=== PATIENT | male | born 1975 | race Caucasian/White ===

== ENCOUNTER 2017-08-28 13:07 | Inpatient (IN) | payer OTHER ==
--- NOTE | 2017-08-28 13:12 | HP ---
[facility] Rehab Assess/Revision - Admission History Ad[facility] - Vital signs Vital Signs: NOTED; STABLE. - Findings Detox History & Physical reviewed: Yes Concur with findings: Yes Comments/Additional Findings: PATIENT'S MEDICAL / MEDICATION HISTORY REVIEWED PRIOR TO DISCHARGE FROM DETOX. PATIENT WAS DISCHARGED FROM DETOX UNIT TO BE TAKEN OVER TO REHAB UNIT IN STABLE MEDICAL CONDITION. Inpatient Rehab Admission - Initial Determination Are CD services needed?: Yes Free of communicable disease: Yes Not in need of hospitalization: Yes - Rehab Admission Criteria Previous failed treatment: Yes Comorbidities: Yes Patient is meeting Inpatient Rehab admission criteria:: Yes
[2017-08-28] MEDS ORDERED: LOPERAMIDE HCL 2 MG CAPSULE PO PRN (13:16)
[2017-08-28] MEDS ORDERED: ACETAMINOPHEN 325 MG TABLET (FP) PO PRN (13:16)
[2017-08-28] MEDS ORDERED: P-EPHED 60MG/TRIPROLIDI 2.5MG TABLET PO PRN (13:16)
[2017-08-28] MEDS ORDERED: MAGNESIUM HYDROX 2400MG/30ML ORAL SUSPENSION 30 ML CUP PO PRN (13:16)
[2017-08-28] MEDS ORDERED: MENTHOL/PHENOL 1 EACH UD MM PRN (13:16)
[2017-08-28] MEDS ORDERED: IBUPROFEN 400 MG TABLET (FP) PO PRN (13:16)
[2017-08-28] MEDS ORDERED: MAGNESIUM CITRATE 300 ML BOTTLE PO PRN (13:16)
[2017-08-28] MEDS ORDERED: guaiFENesin/D-METHORPHAN HB 10 ML UNIT-DOSE CUPS PO PRN (13:16)
--- NOTE | 2017-08-28 13:16 | HP ---
Psychiatrist Admission - Data Date of interview: 08/28/17 Admission source: 3N Identifying data: This is the first 5N inpatient rehabilitation admission for thsi 42 year old single male unemployed and supported on PA, [place]. Medical History: Asthma, migraines,smokes cigarettes 10 a day Psychiatric History: Patient reports was diagnosed as bipolar d/o and anxiety, onset of mental illness 2 years ago after he lost his mothe, reports 4-5 psychiatric hospitalizationsvmost recently was hospitalizaed at [facility] last month to address depressed mood. States he is recieving aftercare at [facility], sees and currently on Seroquel 200 mg po hs, Cogentin 1 mg daily, Abilify 15 mg po daily, Zoloft 100 mg po daily, seen by , medications continued. Reports he was aso on Vistarl PRN for anxiety. Physical/Sexual Abuse/Trauma History: Denies history of abuse. Additional Comment: Reports traumatized by his mother's from DM complications, also lost his 2 other brothers. Allergies/Adverse Reactions: Allergies Allergy/AdvReac Type Severity Reaction Status Date / Time No Known Allergies Allergy Verified 08/25/17 12:17 Date of last physical exam: 08/25/17 Concur with the findings of this exam: Yes - Substance Abuse/Tx History Hx Alcohol Use: Yes (1-2 pints of liwendieor,) Hx Substance Use: Yes Substance Use Type: Cocaine (3 times a week), Marijuana Hx Substance Use Treatment: Yes ([facility] x , [facility] ) Mental Status Exam - Mental Status Exam Alert and Oriented to: Time, Place, Person Cognitive Function: Grossly Intact Patient Appearance: Well Groomed Mood: Sad, Anxious Affect: Appropriate, Mood Congruent Patient Behavior: Appropriate, Cooperative Speech Pattern: Clear Voice Loudness: Normal Thought Process: Goal Oriented Thought Disorder: Not Present Hallucinations: Denies Suicidal Ideation: Denies Homicidal Ideation: Denies Insight/Judgement: Fair Appetite: Fair Muscle strength/Tone: Normal Gait/Station: Normal Psychiatric Findings - Problem List ([place] 1, 2,3) (1) Alcohol dependence Current Visit: Yes Status: Acute (2) Cocaine dependence Current Visit: No Status: Acute (3) Marihuana dependence Current Visit: No Status: Acute (4) Nicotine dependence Current Visit: No Status: Acute (5) Bipolar disorder Current Visit: No Status: Chronic Comment: Self-report.On medications. - Initial Treatment Plan Initial Treatment Plan: will continue his current medications, monitor progress as nejet.
[2017-08-28 15:44] VITALS: BMI 34.9
[2017-08-28] MEDS: NICOTINE POLACRILEX 2 MG GUM BUC PRN (20:15)
[2017-08-28] MEDS: ALBUTEROL SO4 18 GM HFA INHALER IH PRN (20:15)
[2017-08-28] MEDS: QUEtiapine FUMARATE 200 MG TABLET PO SCH (21:32)
[2017-08-28] MEDS: THIAMINE HCL 100 MG TABLET (FP) PO SCH (21:32)
[2017-08-29] MEDS: BENZTROPINE MESYLATE 1 MG TABLET (FP) PO SCH (10:05)
[2017-08-29] MEDS: SERTRALINE HCL 50 MG TABLET (FP) PO SCH (10:05)
[2017-08-29] MEDS: PRENATAL VITAMINS W/ FOLIC ACID TABLET (FP) PO SCH (10:05)
[2017-08-29] MEDS: ARIPiprazole 15 MG TABLET PO SCH (10:05)
[2017-08-29] MEDS: NICOTINE 14 MG/24 HOURS TOPICAL PATCH TD SCH (10:05)
[2017-08-29] MEDS: NICOTINE POLACRILEX 2 MG GUM BUC PRN ×4 (10:06→20:11)
[2017-08-29] MEDS: hydrOXYzine PAMOATE 25 MG CAPSULE (FP) PO PRN (15:14)
[2017-08-29] MEDS: MAG HYDROX/AL HYDROX/SIMETH 30 ML UNIT-DOSE CUP PO PRN (20:11)
[2017-08-29] MEDS: THIAMINE HCL 100 MG TABLET (FP) PO SCH (21:25)
[2017-08-29] MEDS: QUEtiapine FUMARATE 200 MG TABLET PO SCH (21:25)
[2017-08-30] MEDS: NICOTINE POLACRILEX 2 MG GUM BUC PRN ×3 (07:31→13:52)
[2017-08-30] MEDS: ARIPiprazole 15 MG TABLET PO SCH (10:07)
[2017-08-30] MEDS: PRENATAL VITAMINS W/ FOLIC ACID TABLET (FP) PO SCH (10:07)
[2017-08-30] MEDS: SERTRALINE HCL 50 MG TABLET (FP) PO SCH (10:07)
[2017-08-30] MEDS: NICOTINE 14 MG/24 HOURS TOPICAL PATCH TD SCH (10:08)
[2017-08-30] MEDS: BENZTROPINE MESYLATE 1 MG TABLET (FP) PO SCH (10:08)
[2017-08-30] MEDS: ALBUTEROL SO4 18 GM HFA INHALER IH PRN (10:09)
[2017-08-30] MEDS: hydrOXYzine PAMOATE 25 MG CAPSULE (FP) PO PRN (11:29)
--- NOTE | 2017-08-30 12:25 | PN ---
[facility] Progress Note Note: tinea pedis left 5th toe treated with tinactin cream bid
--- NOTE | 2017-08-30 14:36 | PN ---
[facility] Progress Note Note: patient requested to increase Seroquel 300 mg po hs as per medical record ( reconciliation list) hector chaudhry was on 300 mg, will increase med. continue to monitor progress.
[2017-08-30] MEDS: TOLNAFTATE 1% CREAM 15 GM TUBE TP SCH ×2 (14:57→21:48)
[2017-08-30] MEDS: NICOTINE POLACRILEX 4 MG GUM BUC PRN ×2 (17:28→20:25)
[2017-08-30] MEDS: QUEtiapine FUMARATE 300 MG TABLET PO SCH (21:47)
[2017-08-30] MEDS: THIAMINE HCL 100 MG TABLET (FP) PO SCH (21:47)
[2017-08-31] MEDS: NICOTINE POLACRILEX 4 MG GUM BUC PRN ×7 (07:04→22:12)
[2017-08-31] MEDS: hydrOXYzine PAMOATE 25 MG CAPSULE (FP) PO PRN (10:29)
[2017-08-31] MEDS: BENZTROPINE MESYLATE 1 MG TABLET (FP) PO SCH (10:30)
[2017-08-31] MEDS: NICOTINE 14 MG/24 HOURS TOPICAL PATCH TD SCH (10:30)
[2017-08-31] MEDS: SERTRALINE HCL 50 MG TABLET (FP) PO SCH (10:30)
[2017-08-31] MEDS: ARIPiprazole 15 MG TABLET PO SCH (10:30)
[2017-08-31] MEDS: PRENATAL VITAMINS W/ FOLIC ACID TABLET (FP) PO SCH (10:30)
[2017-08-31] MEDS: TOLNAFTATE 1% CREAM 15 GM TUBE TP SCH ×2 (10:31→21:29)
[2017-08-31] MEDS: THIAMINE HCL 100 MG TABLET (FP) PO SCH (21:29)
[2017-08-31] MEDS: QUEtiapine FUMARATE 300 MG TABLET PO SCH (21:29)
[2017-09-01] MEDS: NICOTINE POLACRILEX 4 MG GUM BUC PRN ×6 (06:58→22:12)
[2017-09-01] MEDS: TOLNAFTATE 1% CREAM 15 GM TUBE TP SCH ×2 (10:35→21:39)
[2017-09-01] MEDS: NICOTINE 14 MG/24 HOURS TOPICAL PATCH TD SCH (10:36)
[2017-09-01] MEDS: PRENATAL VITAMINS W/ FOLIC ACID TABLET (FP) PO SCH (10:36)
[2017-09-01] MEDS: ARIPiprazole 15 MG TABLET PO SCH (10:36)
[2017-09-01] MEDS: hydrOXYzine PAMOATE 25 MG CAPSULE (FP) PO PRN ×2 (10:36→14:44)
[2017-09-01] MEDS: BENZTROPINE MESYLATE 1 MG TABLET (FP) PO SCH (10:36)
[2017-09-01] MEDS: SERTRALINE HCL 50 MG TABLET (FP) PO SCH (10:36)
[2017-09-01] MEDS: THIAMINE HCL 100 MG TABLET (FP) PO SCH (21:39)
[2017-09-01] MEDS: QUEtiapine FUMARATE 300 MG TABLET PO SCH (21:39)
[2017-09-02] MEDS: NICOTINE POLACRILEX 4 MG GUM BUC PRN ×6 (06:51→20:13)
[2017-09-02] MEDS: NICOTINE 14 MG/24 HOURS TOPICAL PATCH TD SCH (10:19)
[2017-09-02] MEDS: SERTRALINE HCL 50 MG TABLET (FP) PO SCH (10:19)
[2017-09-02] MEDS: TOLNAFTATE 1% CREAM 15 GM TUBE TP SCH ×2 (10:19→21:50)
[2017-09-02] MEDS: PRENATAL VITAMINS W/ FOLIC ACID TABLET (FP) PO SCH (10:19)
[2017-09-02] MEDS: BENZTROPINE MESYLATE 1 MG TABLET (FP) PO SCH (10:19)
[2017-09-02] MEDS: ARIPiprazole 15 MG TABLET PO SCH (10:19)
[2017-09-02] MEDS: hydrOXYzine PAMOATE 25 MG CAPSULE (FP) PO PRN (10:20)
--- NOTE | 2017-09-02 14:15 | PN ---
Psychiatric Progress Note Vital Signs: Vital Signs Period Temp Pulse Resp BP Sys/Vang Pulse Ox Last 24 Hr 98.2 F 99 18-18 113/74 Date of Session: 09/02/17 Chief Complaint:: "anxiety, agitated" HPI: Patient is addressing alcohol, cocaine, cannabis, nicotine dependence comorbid Bipolar disorder. Current Medications: Active Medications Generic Name Dose Route Start Last Admin Trade Name Freq PRN Reason Stop Dose Admin Acetaminophen 650 mg 08/28/17 13:16 Tylenol - PO Q4H PRN FEVER OR PAIN Al Hydroxide/Mg Hydroxide 30 ml 08/28/17 13:16 08/29/17 20:11 Mylanta Oral Suspension - PO 30 ml Q6H PRN Administration DYSPEPSIA Albuterol Sulfate 2 puff 08/28/17 13:18 08/30/17 10:09 Ventolin Hfa Inhaler - IH 2 puff Q4H PRN Administration SHORT OF BREATH/WHEEZING Aripiprazole 15 mg 08/29/17 10:00 09/02/17 10:19 Abilify PO 15 mg DAILY ARTHUR Administration Benztropine Mesylate 1 mg 08/29/17 10:00 09/02/17 10:19 Cogentin - PO 1 mg DAILY ARTHUR Administration Eucalyptus/Menthol/Phenol/Sorbitol 1 each 08/28/17 13:16 Cepastat Lozenge - MM Q4H PRN SORE THROAT Guaifenesin 10 ml 08/28/17 13:16 Robitussin Dm - PO Q6H PRN COUGH Ibuprofen 400 mg 08/28/17 13:16 Motrin - PO Q6H PRN PAIN Loperamide HCl 4 mg 08/28/17 13:16 Imodium - PO Q6H PRN DIARRHEA Magnesium Citrate 300 ml 08/28/17 13:16 Citroma - PO Q48H PRN CONSTIPATION Magnesium Hydroxide 30 ml 08/28/17 13:16 Milk Of Magnesia - PO DAILY PRN CONSTIPATION Nicotine 14 mg 08/29/17 10:00 09/02/17 10:19 Nicoderm Patch - TD Not Given DAILY ARTHUR Nicotine Polacrilex 4 mg 08/30/17 15:05 09/02/17 12:26 Nicorette Gum - BUC 4 mg Q2H PRN Administration NICOTINE REPLACEMENT RX Multivit/Folic Acid/Iron 1 tab 08/29/17 10:00 09/02/17 10:19 Vitamins (Sjr) - PO 1 tab DAILY ARTHUR Administration Pseudoephedrine/Triprolidine 1 combo 08/28/17 13:16 Actifed - PO TID PRN NASAL CONGESTION Sertraline HCl 100 mg 08/29/17 10:00 09/02/17 10:19 Zoloft - PO 100 mg DAILY ARTHUR Administration Thiamine HCl 100 mg 08/28/17 22:00 09/01/17 21:39 Vitamin B1 - PO 100 mg HS ARTHUR Administration Tolnaftate 1 applic 08/30/17 14:00 09/02/17 10:19 Tinactin 1% Cream - TP 1 applic BID ARTHUR Administration Medication(s) Change(s): increase Vistaril 50 mg po 4hrs, increase Seroquel 400 mg po hs. Current Side Effect: No Lab tests ordered: No Lab tests reviewed: Yes Provider note:: Patient reports has been feeling very anxious and easilly aggravavted for "no reason", states in the past was on Seroquel 500 mg po hs and Vistaril 50 mg q4h, reviewed medications with the patient discussed indications and properteis of current medications, will adjust dosage, continue to monitor progress. Total face to face time:: 15 Mental Status Exam - Mental Status Exam Alert and Oriented to: Time, Place, Person Cognitive Function: Grossly Intact Patient Appearance: Unkempt Mood: Anxious, Irritable Affect: Mood Congruent Patient Behavior: Cooperative Speech Pattern: Clear, Appropriate Voice Loudness: Normal Thought Process: Intact, Goal Oriented Thought Disorder: Not Present Hallucinations: Denies Suicidal Ideation: Denies Homicidal Ideation: Denies Insight/Judgement: Fair Sleep: Fair Muscle strength/Tone: Normal Gait/Station: Normal Psychiatric Treatment Plan - Problem List (1) Alcohol dependence Current Visit: Yes (2) Cocaine dependence Current Visit: No (3) Marihuana dependence Current Visit: No (4) Nicotine dependence Current Visit: No Qualifiers: Nicotine product type: cigarettes Substance use status: uncomplicated Qualified Code(s): F17.210 - Nicotine dependence, cigarettes, uncomplicated (5) Bipolar disorder Current Visit: No Qualifiers: Active/Remission status: remission status unspecified Qualified Code(s): F31.9 - Bipolar disorder, unspecified Comment: Self-report.On medications.
[2017-09-02] MEDS: QUEtiapine FUMARATE 400 MG TABLET PO SCH (21:50)
[2017-09-02] MEDS: THIAMINE HCL 100 MG TABLET (FP) PO SCH (21:50)
[2017-09-03] MEDS: NICOTINE POLACRILEX 4 MG GUM BUC PRN ×6 (06:52→22:14)
[2017-09-03] MEDS: NICOTINE 14 MG/24 HOURS TOPICAL PATCH TD SCH (10:11)
[2017-09-03] MEDS: PRENATAL VITAMINS W/ FOLIC ACID TABLET (FP) PO SCH (10:11)
[2017-09-03] MEDS: ARIPiprazole 15 MG TABLET PO SCH (10:11)
[2017-09-03] MEDS: BENZTROPINE MESYLATE 1 MG TABLET (FP) PO SCH (10:11)
[2017-09-03] MEDS: TOLNAFTATE 1% CREAM 15 GM TUBE TP SCH ×2 (10:11→21:37)
[2017-09-03] MEDS: SERTRALINE HCL 50 MG TABLET (FP) PO SCH (10:11)
[2017-09-03] MEDS: hydrOXYzine PAMOATE 50 MG CAPSULE (FP) PO PRN (10:12)
[2017-09-03] MEDS ORDERED: ALBUTEROL SO4 18 GM HFA INHALER IH PRN (15:34)
[2017-09-03] MEDS: THIAMINE HCL 100 MG TABLET (FP) PO SCH (21:37)
[2017-09-03] MEDS: QUEtiapine FUMARATE 400 MG TABLET PO SCH (21:37)
[2017-09-04] MEDS: NICOTINE POLACRILEX 4 MG GUM BUC PRN ×7 (06:35→22:32)
[2017-09-04] MEDS: NICOTINE 14 MG/24 HOURS TOPICAL PATCH TD SCH (10:13)
[2017-09-04] MEDS: BENZTROPINE MESYLATE 1 MG TABLET (FP) PO SCH (10:13)
[2017-09-04] MEDS: PRENATAL VITAMINS W/ FOLIC ACID TABLET (FP) PO SCH (10:13)
[2017-09-04] MEDS: hydrOXYzine PAMOATE 50 MG CAPSULE (FP) PO PRN ×2 (10:13→17:47)
[2017-09-04] MEDS: TOLNAFTATE 1% CREAM 15 GM TUBE TP SCH ×2 (10:13→21:39)
[2017-09-04] MEDS: ARIPiprazole 15 MG TABLET PO SCH (10:13)
[2017-09-04] MEDS: SERTRALINE HCL 50 MG TABLET (FP) PO SCH (10:13)
--- NOTE | 2017-09-04 10:34 | PN ---
[facility] Progress Note (SOAP) Subjective: feetstillpaifulandskincrackingspieoftinactindailyusewouldlikesteroidointmentwhic hhasworkedinthepast Objective: 09/04/17 10:32 Vital Signs - 8 hr 09/04/17 09/04/17 03:30 07:19 Temperature 98.3 F Pulse Rate 87 Respiratory 16 20 Rate Blood Pressure 97/65 Laboratory Tests 09/04/17 06:34 POC Glucometer 109 labsreviewed Assessment: 09/04/17 10:33 preddiabetic,discussedbehavioralmodificationandneedforncsdiet,exercise, ordredhyrsocortisoneointment.cand/cBGm
[2017-09-04] MEDS: THIAMINE HCL 100 MG TABLET (FP) PO SCH (21:38)
[2017-09-04] MEDS: QUEtiapine FUMARATE 400 MG TABLET PO SCH (21:38)
[2017-09-04] MEDS: HYDROCORTISONE 0.5% TOPICAL OINTMENT TUBE TP PRN (21:39)
[2017-09-05] MEDS: NICOTINE POLACRILEX 4 MG GUM BUC PRN ×7 (06:33→22:34)
[2017-09-05] MEDS: hydrOXYzine PAMOATE 50 MG CAPSULE (FP) PO PRN ×2 (10:27→14:43)
[2017-09-05] MEDS: ARIPiprazole 15 MG TABLET PO SCH (10:27)
[2017-09-05] MEDS: TOLNAFTATE 1% CREAM 15 GM TUBE TP SCH ×2 (10:28→21:45)
[2017-09-05] MEDS: NICOTINE 14 MG/24 HOURS TOPICAL PATCH TD SCH (10:28)
[2017-09-05] MEDS: BENZTROPINE MESYLATE 1 MG TABLET (FP) PO SCH (10:28)
[2017-09-05] MEDS: PRENATAL VITAMINS W/ FOLIC ACID TABLET (FP) PO SCH (10:28)
[2017-09-05] MEDS: SERTRALINE HCL 50 MG TABLET (FP) PO SCH (10:28)
[2017-09-05] MEDS: QUEtiapine FUMARATE 400 MG TABLET PO SCH (21:45)
[2017-09-05] MEDS: THIAMINE HCL 100 MG TABLET (FP) PO SCH (21:45)
[2017-09-05] MEDS: HYDROCORTISONE 0.5% TOPICAL OINTMENT TUBE TP PRN (21:46)
[2017-09-06] MEDS: NICOTINE POLACRILEX 4 MG GUM BUC PRN ×7 (06:29→22:09)
[2017-09-06] MEDS: ARIPiprazole 15 MG TABLET PO SCH (10:08)
[2017-09-06] MEDS: PRENATAL VITAMINS W/ FOLIC ACID TABLET (FP) PO SCH (10:08)
[2017-09-06] MEDS: SERTRALINE HCL 50 MG TABLET (FP) PO SCH (10:08)
[2017-09-06] MEDS: TOLNAFTATE 1% CREAM 15 GM TUBE TP SCH ×2 (10:08→21:34)
[2017-09-06] MEDS: NICOTINE 14 MG/24 HOURS TOPICAL PATCH TD SCH (10:08)
[2017-09-06] MEDS: BENZTROPINE MESYLATE 1 MG TABLET (FP) PO SCH (10:08)
[2017-09-06] MEDS: hydrOXYzine PAMOATE 50 MG CAPSULE (FP) PO PRN ×2 (10:09→14:32)
[2017-09-06] MEDS: MAG HYDROX/AL HYDROX/SIMETH 30 ML UNIT-DOSE CUP PO PRN (10:09)
[2017-09-06] MEDS: HYDROCORTISONE 0.5% TOPICAL OINTMENT TUBE TP PRN (21:34)
[2017-09-06] MEDS: QUEtiapine FUMARATE 400 MG TABLET PO SCH (21:34)
[2017-09-06] MEDS: THIAMINE HCL 100 MG TABLET (FP) PO SCH (21:34)
[2017-09-07] MEDS: NICOTINE POLACRILEX 4 MG GUM BUC PRN ×8 (06:33→22:42)
[2017-09-07] MEDS: ARIPiprazole 15 MG TABLET PO SCH (10:06)
[2017-09-07] MEDS: hydrOXYzine PAMOATE 50 MG CAPSULE (FP) PO PRN ×2 (10:06→14:20)
[2017-09-07] MEDS: PRENATAL VITAMINS W/ FOLIC ACID TABLET (FP) PO SCH (10:06)
[2017-09-07] MEDS: BENZTROPINE MESYLATE 1 MG TABLET (FP) PO SCH (10:06)
[2017-09-07] MEDS: SERTRALINE HCL 50 MG TABLET (FP) PO SCH (10:06)
[2017-09-07] MEDS: TOLNAFTATE 1% CREAM 15 GM TUBE TP SCH ×2 (10:07→21:39)
[2017-09-07] MEDS: NICOTINE 14 MG/24 HOURS TOPICAL PATCH TD SCH (10:07)
[2017-09-07] MEDS: THIAMINE HCL 100 MG TABLET (FP) PO SCH (21:39)
[2017-09-07] MEDS: QUEtiapine FUMARATE 400 MG TABLET PO SCH (21:39)
[2017-09-08] MEDS: NICOTINE POLACRILEX 4 MG GUM BUC PRN ×8 (06:45→22:48)
[2017-09-08] MEDS: PRENATAL VITAMINS W/ FOLIC ACID TABLET (FP) PO SCH (10:29)
[2017-09-08] MEDS: BENZTROPINE MESYLATE 1 MG TABLET (FP) PO SCH (10:29)
[2017-09-08] MEDS: NICOTINE 14 MG/24 HOURS TOPICAL PATCH TD SCH (10:29)
[2017-09-08] MEDS: SERTRALINE HCL 50 MG TABLET (FP) PO SCH (10:29)
[2017-09-08] MEDS: ARIPiprazole 15 MG TABLET PO SCH (10:29)
[2017-09-08] MEDS: TOLNAFTATE 1% CREAM 15 GM TUBE TP SCH ×2 (10:30→21:36)
[2017-09-08] MEDS: hydrOXYzine PAMOATE 50 MG CAPSULE (FP) PO PRN ×2 (10:30→14:24)
[2017-09-08] MEDS: QUEtiapine FUMARATE 400 MG TABLET PO SCH (21:35)
[2017-09-08] MEDS: THIAMINE HCL 100 MG TABLET (FP) PO SCH (21:35)
[2017-09-09] MEDS: NICOTINE POLACRILEX 4 MG GUM BUC PRN ×6 (08:52→22:24)
[2017-09-09] MEDS: SERTRALINE HCL 50 MG TABLET (FP) PO SCH (10:21)
[2017-09-09] MEDS: ARIPiprazole 15 MG TABLET PO SCH (10:21)
[2017-09-09] MEDS: BENZTROPINE MESYLATE 1 MG TABLET (FP) PO SCH (10:22)
[2017-09-09] MEDS: HYDROCORTISONE 0.5% TOPICAL OINTMENT TUBE TP PRN (10:22)
[2017-09-09] MEDS: TOLNAFTATE 1% CREAM 15 GM TUBE TP SCH ×2 (10:22→21:33)
[2017-09-09] MEDS: NICOTINE 14 MG/24 HOURS TOPICAL PATCH TD SCH (10:22)
[2017-09-09] MEDS: PRENATAL VITAMINS W/ FOLIC ACID TABLET (FP) PO SCH (10:22)
[2017-09-09] MEDS: hydrOXYzine PAMOATE 50 MG CAPSULE (FP) PO PRN ×2 (10:23→14:01)
[2017-09-09] MEDS: THIAMINE HCL 100 MG TABLET (FP) PO SCH (21:33)
[2017-09-09] MEDS: QUEtiapine FUMARATE 400 MG TABLET PO SCH (21:33)
[2017-09-10] MEDS: NICOTINE POLACRILEX 4 MG GUM BUC PRN ×7 (06:13→22:15)
[2017-09-10] MEDS: PRENATAL VITAMINS W/ FOLIC ACID TABLET (FP) PO SCH (10:33)
[2017-09-10] MEDS: NICOTINE 14 MG/24 HOURS TOPICAL PATCH TD SCH (10:33)
[2017-09-10] MEDS: SERTRALINE HCL 50 MG TABLET (FP) PO SCH (10:33)
[2017-09-10] MEDS: ARIPiprazole 15 MG TABLET PO SCH (10:33)
[2017-09-10] MEDS: BENZTROPINE MESYLATE 1 MG TABLET (FP) PO SCH (10:33)
[2017-09-10] MEDS: TOLNAFTATE 1% CREAM 15 GM TUBE TP SCH ×2 (10:34→21:40)
[2017-09-10] MEDS: HYDROCORTISONE 0.5% TOPICAL OINTMENT TUBE TP PRN (10:35)
[2017-09-10] MEDS: hydrOXYzine PAMOATE 50 MG CAPSULE (FP) PO PRN ×2 (10:36→14:42)
[2017-09-10] MEDS: THIAMINE HCL 100 MG TABLET (FP) PO SCH (21:40)
[2017-09-10] MEDS: QUEtiapine FUMARATE 400 MG TABLET PO SCH (21:40)
[2017-09-11] MEDS: NICOTINE POLACRILEX 4 MG GUM BUC PRN ×2 (06:18→08:46)
[2017-09-11 07:04] VITALS: BP 108/72; PULSE 86; TEMP 98.1
--- NOTE | 2017-09-11 09:58 | PN ---
Psychiatric Progress Note Vital Signs: Vital Signs Period Temp Pulse Resp BP Sys/Vang Pulse Ox Last 24 Hr 98.1 F 86 16-20 108/72 Date of Session: 09/11/17 Chief Complaint:: discharge visit HPI: Patient is addressing alcohol, cocaine, cannabis, nicotine dependence comorbid Bipolar disorder. Current Medications: Active Medications Generic Name Dose Route Start Last Admin Trade Name Freq PRN Reason Stop Dose Admin Acetaminophen 650 mg 08/28/17 13:16 Tylenol - PO Q4H PRN FEVER OR PAIN Al Hydroxide/Mg Hydroxide 30 ml 08/28/17 13:16 09/06/17 10:09 Mylanta Oral Suspension - PO 30 ml Q6H PRN Administration DYSPEPSIA Albuterol Sulfate 2 puff 09/03/17 15:34 Ventolin Hfa Inhaler - IH Q4H PRN SHORTNESS OF BREATH Aripiprazole 15 mg 08/29/17 10:00 09/10/17 10:33 Abilify PO 15 mg DAILY ARTHUR Administration Benztropine Mesylate 1 mg 08/29/17 10:00 09/10/17 10:33 Cogentin - PO 1 mg DAILY ARTHUR Administration Eucalyptus/Menthol/Phenol/Sorbitol 1 each 08/28/17 13:16 Cepastat Lozenge - MM Q4H PRN SORE THROAT Guaifenesin 10 ml 08/28/17 13:16 Robitussin Dm - PO Q6H PRN COUGH Hydrocortisone 1 applic 09/04/17 10:30 09/10/17 10:35 Hytone 0.5% Ointment - TP 1 applic BID PRN Administration FOR ITCHING Hydroxyzine Pamoate 50 mg 09/02/17 14:10 09/10/17 14:42 Vistaril - PO 50 mg Q4H PRN Administration ANXIETY Ibuprofen 400 mg 08/28/17 13:16 Motrin - PO Q6H PRN PAIN Loperamide HCl 4 mg 08/28/17 13:16 Imodium - PO Q6H PRN DIARRHEA Magnesium Citrate 300 ml 08/28/17 13:16 Citroma - PO Q48H PRN CONSTIPATION Magnesium Hydroxide 30 ml 08/28/17 13:16 Milk Of Magnesia - PO DAILY PRN CONSTIPATION Nicotine 14 mg 08/29/17 10:00 09/10/17 10:33 Nicoderm Patch - TD Not Given DAILY ARTHUR Nicotine Polacrilex 4 mg 08/30/17 15:05 09/11/17 08:46 Nicorette Gum - BUC 4 mg Q2H PRN Administration NICOTINE REPLACEMENT RX Multivit/Folic Acid/Iron 1 tab 08/29/17 10:00 09/10/17 10:33 Vitamins (Sjr) - PO 1 tab DAILY ARTHUR Administration Pseudoephedrine/Triprolidine 1 combo 08/28/17 13:16 Actifed - PO TID PRN NASAL CONGESTION Quetiapine Fumarate 400 mg 09/02/17 22:00 09/10/17 21:40 Seroquel - PO 400 mg HS ARTHUR Administration Sertraline HCl 100 mg 08/29/17 10:00 09/10/17 10:33 Zoloft - PO 100 mg DAILY ARTHUR Administration Thiamine HCl 100 mg 08/28/17 22:00 09/10/17 21:40 Vitamin B1 - PO 100 mg HS ARTHUR Administration Tolnaftate 1 applic 08/30/17 14:00 09/10/17 21:40 Tinactin 1% Cream - TP Not Given BID ARTHUR Current Side Effect: No Lab tests ordered: No Lab tests reviewed: Yes Provider note:: Patient has completed today his treatment and met his goals, will continue to address his issues at [facility] half-way inpatient rehabilitation treatment. He gained insights into his addiction and motivated to continue maintain abstinence. Patient verbalized his resolution to stay sober and adherent to his aftercare plans. Medications Seroquel, Abilify, Zoloft and Cogentin well tolerated, scripts provided, patient was encouraged to take medications as directed. Patient is stable for discharge today. Total face to face time:: 25 Mental Status Exam - Mental Status Exam Alert and Oriented to: Time, Place, Person Cognitive Function: Good Patient Appearance: Well Groomed Mood: Hopeful Affect: Appropriate, Mood Congruent Patient Behavior: Appropriate, Cooperative Speech Pattern: Clear, Appropriate Voice Loudness: Normal Thought Process: Intact, Goal Oriented Thought Disorder: Not Present Hallucinations: Denies Suicidal Ideation: Denies Homicidal Ideation: Denies Insight/Judgement: Fair Sleep: Fair Appetite: Fair Muscle strength/Tone: Normal Gait/Station: Normal Psychiatric Treatment Plan - Problem List (1) Alcohol dependence Current Visit: Yes (2) Cocaine dependence Current Visit: No (3) Marihuana dependence Current Visit: No (4) Nicotine dependence Current Visit: No Qualifiers: Nicotine product type: cigarettes Substance use status: uncomplicated Qualified Code(s): F17.210 - Nicotine dependence, cigarettes, uncomplicated (5) Bipolar disorder Current Visit: No Qualifiers: Active/Remission status: remission status unspecified Qualified Code(s): F31.9 - Bipolar disorder, unspecified Comment: Self-report.On medications.
[2017-09-11] MEDS: BENZTROPINE MESYLATE 1 MG TABLET (FP) PO SCH (10:28)
[2017-09-11] MEDS: TOLNAFTATE 1% CREAM 15 GM TUBE TP SCH (10:28)
[2017-09-11] MEDS: PRENATAL VITAMINS W/ FOLIC ACID TABLET (FP) PO SCH (10:28)
[2017-09-11] MEDS: ARIPiprazole 15 MG TABLET PO SCH (10:28)
[2017-09-11] MEDS: NICOTINE 14 MG/24 HOURS TOPICAL PATCH TD SCH (10:28)
[2017-09-11] MEDS: SERTRALINE HCL 50 MG TABLET (FP) PO SCH (10:28)
[2017-09-11] MEDS: hydrOXYzine PAMOATE 50 MG CAPSULE (FP) PO PRN (10:29)
== END 2017-09-11 10:50 | disposition home or self-care (01) | DRG 772 ==
LOC: YASAS 13:07 → Y5N 13:08
PROVIDERS: ADMIT Psychiatry & Neurology Psychiatry; ATTEND Psychiatry & Neurology Psychiatry
PROC: HZ42ZZZ Group Counseling for Substance Abuse Treatment, Cognitive-Behavioral (ICD-10-PCS; principal; 2017-08-28)
DX: F10.20 Alcohol dependence, uncomplicated (principal); F14.20 Cocaine dependence, uncomplicated; F12.20 Cannabis dependence, uncomplicated; F17.210 Nicotine dependence, cigarettes, uncomplicated; F31.30 Bipolar disorder, current episode depressed, mild or moderate severity, unspecified; F41.9 Anxiety disorder, unspecified; F19.24 Other psychoactive substance dependence with psychoactive substance-induced mood disorder; Z59.0 Homelessness